=== PATIENT | female | born 1970 | race Asian ===

== ENCOUNTER → 2023-07-27 11:10 | Outpatient (REF) | payer BC, SELFPAY | LOC: DHCBS MAIN 11:10 | PROVIDERS: ATTENDING PHYSICIAN Internal Medicine Interventional Cardiology; FAMILY PHYSICIAN Family Medicine | DX: R06.09 Other forms of dyspnea (principal) | CPT/HCPCS: 93306 ==

== ENCOUNTER → 2023-08-15 07:29 | Outpatient (REF) | payer BC, SELFPAY | LOC: RCS 07:29 | PROVIDERS: ATTENDING PHYSICIAN Internal Medicine Interventional Cardiology; FAMILY PHYSICIAN Family Medicine | DX: R06.09 Other forms of dyspnea (principal); R07.89 Other chest pain; E78.2 Mixed hyperlipidemia; R73.03 Prediabetes | CPT/HCPCS: 93017 ==

== ENCOUNTER → 2023-08-18 07:12 | Outpatient (REF) | payer BC, SELFPAY | LOC: RAD 07:12 | PROVIDERS: ATTENDING PHYSICIAN Urology; FAMILY PHYSICIAN Family Medicine | DX: M62.89 Other specified disorders of muscle (principal); N95.2 Postmenopausal atrophic vaginitis; R10.2 Pelvic and perineal pain; N39.0 Urinary tract infection, site not specified; N94.10 Unspecified dyspareunia | CPT/HCPCS: 76770; 76856 ==

== ENCOUNTER → 2023-10-26 07:53 | Outpatient (REF) | payer BC, SELFPAY | LOC: WDC 07:53 | PROVIDERS: ATTENDING PHYSICIAN Family Medicine | DX: R92.2 Inconclusive mammogram (principal); R92.343 Mammographic extreme density, bilateral breasts | CPT/HCPCS: 76641 ==

== ENCOUNTER → 2023-11-06 08:03 | Outpatient (REF) | payer BC, SELFPAY | LOC: RAD 08:03 | PROVIDERS: ATTENDING PHYSICIAN Internal Medicine Interventional Cardiology | DX: R07.89 Other chest pain (principal); R06.09 Other forms of dyspnea | CPT/HCPCS: 75574; Q9967 ==

== ENCOUNTER → 2024-01-09 06:26 | Day surgery (SDC) | payer BC, SELFPAY | LOC: GI 06:26 | PROVIDERS: ATTENDING PHYSICIAN Specialist | DX: K64.8 Other hemorrhoids (principal); R10.13 Epigastric pain; R07.89 Other chest pain; D12.4 Benign neoplasm of descending colon; D12.5 Benign neoplasm of sigmoid colon; K31.89 Other diseases of stomach and duodenum; Z86.010 Personal history of colon polyps; Z98.0 Intestinal bypass and anastomosis status; Z85.048 Personal history of other malignant neoplasm of rectum, rectosigmoid junction, and anus | CPT/HCPCS: 45380; 43239; 88305; 88342 ==

== ENCOUNTER → 2024-04-22 19:12 | Outpatient (REF) | payer BC, SELFPAY | LOC: WDC 19:12 | PROVIDERS: ATTENDING PHYSICIAN Obstetrics & Gynecology; FAMILY PHYSICIAN Family Medicine | DX: Z12.31 Encounter for screening mammogram for malignant neoplasm of breast (principal) | CPT/HCPCS: 77063; 77067 ==

== ENCOUNTER → 2025-01-01 12:30 | Outpatient (REF) | payer BC, SELFPAY ==
[2025-01-01 13:16] LABS: Blood Urea Nitrogen 32 mg/dl (7-17); Calcium 10.4 mg/dl (8.4-10.2); Carbon Dioxide 27 mmol/L (22-30); Chloride 103 mmol/L (98-107); Glucose 105 mg/dl (70-99); Sodium 139 mmol/L (135-145); eGFR > 60.00
[2025-01-01 13:23] LABS: Potassium 5.2 mmol/L (3.5-5.1)
== END ==
LOC: RAD 12:30
PROVIDERS: ATTENDING PHYSICIAN Nurse Practitioner Family
DX: R10.31 Right lower quadrant pain (principal)
CPT/HCPCS: 36415; 74177; 80048; Q9967

== ENCOUNTER → 2025-04-24 19:04 | Outpatient (REF) | payer BC, SELFPAY | LOC: WDC 19:04 | PROVIDERS: ATTENDING PHYSICIAN Obstetrics & Gynecology; FAMILY PHYSICIAN Family Medicine | DX: Z12.31 Encounter for screening mammogram for malignant neoplasm of breast (principal) | CPT/HCPCS: 77063; 77067 ==